=== PATIENT | female | born 1975 | race Caucasian/White ===

== ENCOUNTER 2019-10-24 15:07 | Emergency (ER) | payer OTHER ==
--- OUTSIDE RECORDS SUMMARY | 2019-10-24 15:12 | XMS REPORT | Continuity of Care Document ---
:1975 External Reference #:[id number] Author Name Clyde Washington PA Address [address] [place] [address] Problems Active Problems Provider Date Moderate recurrent major depression Savannah Watkins MD Onset: 03/24/2011 Peptic reflux disease Savannah Watkins MD Onset: 03/24/2011 Generalized anxiety disorder Ellen Aguiar MD Onset: 06/04/2015 Chronic sinusitis Ellen Aguiar MD Onset: 06/04/2015 Tobacco user Ellen Aguiar MD Onset: 06/05/2015 Bruxism (teeth grinding) Ellen Aguiar MD Onset: 06/05/2015 Pure hypercholesterolemia Ellen Aguiar MD Onset: 07/17/2015 Social History Type Date Description Comments Sex Unknown Tobacco Use Start: Unknown Current Cigarette Smoker 1 Pack Daily ETOH Use Occasionally consumes alcohol Tobacco Use Start: Unknown Heavy tobacco smoker (more than 10 cigarettes/day) Smoking Status Reviewed: 09/28/19 Heavy tobacco smoker (more than 10 cigarettes/day) Allergies, Adverse Reactions, Alerts Active Allergies Reaction Severity Comments Date Tylenol #3 Heart Races 03/24/2005 Medications Active Medications SIG Qnty Indications Ordering Date Provider Montelukast Sodium 1 by mouth every 90tabs J30.9 Savannah Watkins 2018 10mg day MD Jose Tablets Cetirizine 1 po q day 90tabs J30.9 Savannah Watkins 09/28/2019 HCL/Pseudoephedrine MD Jose HCL ER 5-120mg Tablets ER 12HR Albuterol Sulfate HFA Inhale 2 Puffs 8.5units R06.2 Aliyah Turner 2018 By Mouth 4 Times C, RN MS TAX EVALUATOR 108(90Base) mcg/Act Daily as Needed Aerosol Amlodipine Besylate Take 1 Tablet By 30tabs I10 Clyde Washington PA 2017 5mg Mouth Every Day Tablets Metoprolol Succinate Take 1 Tablet By 30tabs I10 Aliyah Turner 2017 ER Mouth Every Day Justino RN MS TAX EVALUATOR 50mg Tablets ER 24HR Propranolol HCL 1 tabs every 6 30tabs F41.1 Aliyah Turner 12/11/2017 10mg hours as needed CASEY Badillo MS TAX EVALUATOR Tablets for anxiety Citalopram Take 1 & 1/2 45tabs F33.1 Aliyah Turner 11/06/2017 Hydrobromide Tablets By Mouth Justino RN MS TAX EVALUATOR 20mg Every Day Tablets Fluticasone two spray per 16gm J30.9 Aliyah Turner 08/20/2017 Propionate each nostril Justino RN MS TAX EVALUATOR 50mcg/Act every day Suspension Chantix Starting to start 1 week 1tabs F17.200 Savannah Watkins 07/11/2015 Month Vaibhav before target M, 0.5mg X 11 & quit day; day 1 mg X 42 Tablets 1-3: 0.5mg qday; day 4-7: 0.5mg bid; day 7+ 1mg twice a day for 11 weeks F17.210 Chantix Continuing after the starter 1pack F17.200 Ellen Aguiar, 2014 Month Vaibhav pack, continue 1 tab MD 1mg Tablets twice a day for 11 weeks. may extend tx for another 12 weeks. F17.210 Immunizations CPT Code Status Date Vaccine Lot # [id number] Given 11/06/2017 Influenza Vac, Quadrivalent, Split, 0.5mL Dosage, [id number] Im Use 49226 Given 03/14/2004 Immunization Td 7 Yrs Or Older [id number] Refused 01/12/2019 Influenza Vac, Quadrivalent, Split, 0.5mL Dosage, Im Use Vital Signs Date Vital Result Comment 09/28/2019 11:32am Body Temperature 98.4 F Weight 165.12 lb Heart Rate 98 /min BP Systolic 145 mmHg BP Diastolic 85 mmHg Height 62 inches 5'2" BMI (Body Mass Index) 30.2 kg/m2 01/12/2019 10:08am Weight 154.25 lb Heart Rate 88 /min BP Systolic 127 mmHg BP Diastolic 76 mmHg Height 62 inches 5'2" BMI (Body Mass Index) 28.2 kg/m2 Results Test Acquired Date Facility Test Result H/L Range Note Laboratory test 09/28/2019 Done [facility] 1 Rapid Flu NEG finding Test (In House) Procedures Date Code Description Status 03/30/2019 [id number] Mammogram Completed 07/14/2018 [id number] Mammogram Completed 08/31/2017 [id number] Mammogram Completed Medical Devices Description No Information Available Encounters Description No Information Available Assessments Date Code Description Provider 09/28/2019 R49.0 Dysphonia Clyde Washington PA 09/28/2019 J30.9 Allergic rhinitis, unspecified Clyde Washington PA 09/28/2019 E66.9 Obesity, unspecified Clyde Washington PA 09/28/2019 Z68.30 Body mass index (BMI) 30.0-30.9, adult Clyde Washington PA Plan of Treatment Future Appointment(s):10/06/2019 8:20 am - Aliyah Turner RN MS TAX EVALUATOR at [id number]/28/2019 - Clyde Washington PAR49.0 DysphoniaComments:likely due to viral illness or allergies. should trend towards better. denies GERD s/s. DDx: if hoarseness continues, may want to consider radiology of chest with her h/o smoking -- Pancoast tumor.J30.9 Allergic rhinitis, unspecifiedNew Medication: Montelukast Sodium 10 mg - 1 by mouth every dayCetirizine HCL/Pseudoephedrine HCL ER 5-120 mg - 1 po q dayComments:will add singulair to allergy meds. ? helpE66.9 Obesity, ollgcakedrxF88.30 Body mass index (BMI) 30.0-30.9, adult Functional Status Description No Information Available Mental Status Description No Information Available Referrals Description No Information Available
--- OUTSIDE RECORDS SUMMARY | 2019-10-24 15:12 | XMS REPORT | Continuity of Care Document ---
:1975 External Reference #:[id number] Author Name Aliyah Turner, RN MS CLASSIFIED AD TAKER Address [address] [place] [address] Problems Active Problems Provider Date Moderate recurrent [...] (more than 10 cigarettes/day) Smoking Status Reviewed: 10/06/19 Heavy tobacco smoker (more than 10 cigarettes/day) Allergies, Adverse Reactions, Alerts Active Allergies Reaction Severity Comments Date Tylenol #3 Heart Races 03/24/2005 Medications Active Medications SIG Qnty Indications Ordering Date Provider Citalopram 1 by mouth every 30tabs F33.1 Aliyah Turner 10/06/2019 Hydrobromide mercedes Badillo RN MS CLASSIFIED AD TAKER 40mg Tablets Montelukast Sodium 1 by mouth every 90tabs J30.9 Savannah Watkins 2018 10mg day MD Jose Tablets Cetirizine 1 po q day 90tabs J30.9 Savannah Watkins 09/28/2019 HCL/Pseudoephedrine MD Jose HCL ER 5-120mg Tablets ER 12HR Albuterol Sulfate HFA Inhale 2 Puffs 8.5units R06.2 Aliyah Turner 2018 By Mouth 4 Times Justino RN MS CLASSIFIED AD TAKER 108(90Base) mcg/Act Daily as Needed Aerosol Amlodipine Besylate Take 1 Tablet By 30tabs I10 Clyde Washington PA 2017 5mg Mouth Every Day Tablets Metoprolol Succinate Take 1 Tablet By 30tabs I10 Aliyah Turner 2017 ER Mouth Every Day Justino RN MS CLASSIFIED AD TAKER 50mg Tablets ER 24HR Propranolol HCL 1 tabs every 6 30tabs F41.1 Aliyah Turner 12/11/2017 10mg hours as needed Justino RN MS CLASSIFIED AD TAKER Tablets for anxiety Fluticasone two spray per 16gm J30.9 Aliayh Turner 08/20/2017 Propionate each nostril Justino RN MS CLASSIFIED AD TAKER 50mcg/Act every day Suspension Chantix Starting to [...] CPT Code Status Date Vaccine Lot # [id number] Given 10/06/2019 Influenza Vac, Quadrivalent, Split, 0.5mL Dosage, [id number] Im Use 91142 Given 11/06/2017 Influenza Vac, Quadrivalent, Split, 0.5mL Dosage, [id number] Im Use 42490 Given 03/14/2004 Immunization Td 7 Yrs Or Older [id number] Refused 01/12/2019 Influenza Vac, Quadrivalent, Split, 0.5mL Dosage, Im Use Vital Signs Date Vital Result Comment 10/06/2019 8:20am Weight 167.00 lb Heart Rate 103 /min BP Systolic 146 mmHg BP Diastolic 84 mmHg 09/28/2019 11:32am Body Temperature 98.4 F Weight 165.12 lb Heart Rate 98 /min BP Systolic 145 mmHg BP Diastolic 85 mmHg Height 62 inches 5'2" BMI (Body Mass Index) 30.2 kg/m2 Results Test Acquired Date Facility Test Result H/L Range Note Laboratory test 09/28/2019 Done [facility] 1 Rapid Flu NEG finding Test (In House) Procedures Date Code Description Status 03/30/2019 [id number] Mammogram Completed 07/14/2018 [id number] Mammogram Completed 08/31/2017 [id number] Mammogram Completed Medical Devices Description No Information Available Encounters Type Date Location Provider Dx Diagnosis Office Visit 09/28/2019 11:40a Renuka Clyde Washington PA R49.0 Dysphonia J30.9 Allergic rhinitis, unspecified E66.9 Obesity, unspecified Z68.30 Body mass index (BMI) 30.0-30.9, adult Assessments Date Code Description Provider 10/06/2019 I10 Essential (primary) hypertension Aliyah Turner RN [facility] 10/06/2019 J30.9 Allergic rhinitis, greciaified Aliyah Turner RN [facility] 10/06/2019 F41.1 Generalized anxiety disorder Aliyah Turner RN [facility] 10/06/2019 F33.1 Major depressive disorder, recurrent, Aliyah Turner RN [facility] moderate 10/06/2019 E55.9 Vitamin D deficiency, unspecified Aliyah Turner RN [facility] 10/06/2019 F17.210 Nicotine dependence, cigarettes, Aliyah Turner RN [facility] uncomplicated 10/06/2019 Z23 Encounter for immunization Aliyah Turner RN [facility] 09/28/2019 R49.0 Dysphonia Clyde Washington PA 09/28/2019 J30.9 Allergic rhinitis, unspecified Clyde Washington PA 09/28/2019 E66.9 Obesity, unspecified Clyde Washington PA 09/28/2019 Z68.30 Body mass index (BMI) 30.0-30.9, Clyde Washington PA adult Plan of Treatment Future Appointment(s):04/05/2020 10:00 am - Aliyah Turner RN [facility] at [facility]/06/2019 - Aliyah Turner RN [facility]10 Essential (primary) hypertensionComments:Discussed the need to decrease the caffine intake. Pt will work on that , decrease smoking goal is less than 130/ 80Follow up:6 mo for pe ewmoprfY19.9 Allergic rhinitis, hpifbmjawdpL76.1 Generalized anxiety fxkgxvibL59.1 Major depressive disorder, recurrent, moderateNew Medication: Citalopram Hydrobromide 40 mg - 1 by mouth every dayE55.9 Vitamin D deficiency, unspecifiedMiscellaneous:Vitamin d: take 2000iu daily in winter, this may help with depression and or mood as well as your ibyjqZ92.210 Nicotine dependence, cigarettes, [id number] Encounter for immunizationComments:FLU SHOT REVIEWED, BOTH BENEFITS AND POSSIBLE SE. REVIEWED CONTRAINDICATIONS IEALLERGY TO EGGS, , PREVIOUS ALLERGIC REACTION TO FLU SHOT. OFFERED [place] VIS INFORMATION SHEET. . Functional Status Description No Information Available Mental Status Description No Information Available Referrals Description No Information Available
[2019-10-24 15:29] VITALS: BP 175/94
[2019-10-24] MEDS ORDERED: Ketorolac INJ* 30 MG/ML 1 ML VIAL IM ONE (15:49)
[2019-10-24] MEDS ORDERED: Penicillin VK TAB* 250 MG PO ONE (15:49)
--- NOTE | 2019-10-24 16:03 | UC ---
[facility] HPI - HPI Summary HPI Summary: 44 yo female with worsening left sided dental pain x days has not seen a dentist for >10 yrs hx htn no fever multiple missing and cracked teeth grinds teeth at night no facial swelling - History of Current Complaint Chief Complaint: UCDentalProblem Stated Complaint: tooth ache Time Seen by Provider: 10/24/19 15:41 Onset/Duration: Gradual Onset, Lasting Weeks, Worse Since - 3-4 days Severity: Severe Pain Intensity: 8 Pain Scale Used: 0-10 Numeric Aggravating Factor(s): Heat, Cold, Chewing Alleviating Factor(s): Nothing - Allergies/Home Medications Allergies/Adverse Reactions: Allergies Allergy/AdvReac Type Severity Reaction Status Date / Time MS Codeine [Codeine] Allergy heart races Verified 09/26/14 07:13 Home Medications: Home Medications Blood Preesure 10/24/19 [History] Escitalopram * [Lexapro *] 1 tab PO DAILY 10/24/19 [History Confirmed 10/24/19] PMH/Surg Hx/FS Hx/Imm Hx Previously Healthy: Yes Cardiovascular History: Hypertension - Surgical History Surgical History: Yes Surgery Procedure, Year, and Place: TUBAL. D&C - Family History Known Family History: Positive: Hypertension Negative: Diabetes - Social History Alcohol Use: Daily Substance Use Type: None Smoking Status (MU): Heavy Every Day Tobacco Smoker Review of Systems All Other Systems Reviewed And Are Negative: Yes Constitutional: Positive: Negative Skin: Positive: Negative Eyes: Positive: Negative ENT: Positive: Dental Pain Respiratory: Positive: Negative Cardiovascular: Positive: Negative Gastrointestinal: Positive: Negative Genitourinary: Positive: Negative Motor: Positive: Negative Neurovascular: Positive: Negative Musculoskeletal: Positive: Negative Neurological: Positive: Negative Psychological: Positive: Negative Physical Exam Triage Information Reviewed: Yes Appearance: Well-Appearing, No Pain Distress, Well-Nourished Vital Signs: Initial Vital Signs Temp 98.8 F 10/24/19 15:24 Pulse 98 10/24/19 15:24 Resp 16 10/24/19 15:24 BP 175/94 10/24/19 15:24 Pulse Ox 98 10/24/19 15:24 Vital Signs Reviewed: Yes Eyes: Positive: Conjunctiva Clear ENT: Positive: Hearing grossly normal, Uvula midline. Negative: Nasal congestion, Nasal drainage, Tonsillar swelling, Tonsillar exudate, Trismus, Muffled voice, Hoarse voice Dental Exam: Other - abysmal dentition Neck: Positive: Supple, Enlarged Nodes @ - LEFT ANT CERVICAL/TENDER Respiratory: Positive: Lungs clear, Normal breath sounds, No respiratory distress, No accessory muscle use Cardiovascular: Positive: RRR, No Murmur Abdomen Description: Positive: Nontender, No Organomegaly, Soft Bowel Sounds: Positive: Present Musculoskeletal: Positive: ROM Intact, No Edema Neurological: Positive: Alert, Muscle Tone Normal Psychological Exam: Normal Skin Exam: Normal Dental Complaint Course/Dx - Differential Dx/Diagnosis Provider Diagnosis: Dentalgia Discharge ED - Sign-Out/Discharge Documenting (check all that apply): Patient Departure All imaging exams completed and their final reports reviewed: No Studies - Discharge Plan Condition: Stable Disposition: HOME Prescriptions: Naproxen [Naproxen 500 mg tab] 500 mg PO BID PRN #20 tablet PRN Reason: Pain Patient Education Materials: Toothache (ED) Referrals: Savannah Hobson MD [Primary Care Provider] - - Billing Disposition and Condition Condition: STABLE Disposition: Home
== END 2019-10-24 16:45 | disposition home or self-care (01) ==
LOC: UCEAST 15:07
DX: K08.89 Other specified disorders of teeth and supporting structures (principal); I10 Essential (primary) hypertension; F17.200 Nicotine dependence, unspecified, uncomplicated; Z88.5 Allergy status to narcotic agent
CPT/HCPCS: 96372; 99212; A9270-GY; G0463; J1885